=== PATIENT | female | born 1955 | race Two or more races ===

== ENCOUNTER 2017-02-11 17:36 | Emergency (ER) | payer SELFPAY ==
[~2017-02-11] VITALS: Ht 149.9 cm; Wt 68.0 kg
[~2017-02-11 17:36] MED LIST: BACL-63 PO; DOCU-94 PO; GABA300C8 PO; HYOS0.1250 PO; LANS30CA63 PO; ONDA8TAB6 PO; SENN8.6T4 PO; SERT-160 PO; SUC1LQ PO; ZOLP10TA PO
[2017-02-11 17:41] VITALS: BP 123/67
== END 2017-02-11 20:06 | disposition home or self-care (01) ==
LOC: ER 17:36
DX: N39.0 Urinary tract infection, site not specified (principal); I48.91 Unspecified atrial fibrillation; Z87.440 Personal history of urinary (tract) infections; Z90.89 Acquired absence of other organs; Z90.710 Acquired absence of both cervix and uterus

== ENCOUNTER 2017-02-18 03:41 | Emergency (ER) | payer MEDICARE ==
[~2017-02-18] VITALS: Ht 149.9 cm; Wt 68.0 kg
[2017-02-18 04:48] LABS: Basophils # (auto) 0 uL; Basophils % (auto) 0.1 % (0.0-2.0); Eosinophils # (auto) 0.2 uL; Eosinophils % (auto) 1.4 % (0.0-7.0); Hemoglobin 13.2 g/dL (12.2-16.2); Lymphocytes % (auto) 16.5 % (10.0-50.0); Mean Corpuscular Hemoglobin 27.1 pg (28.0-32.0); Mean Corpuscular Volume 82.2 fL (80.0-100.0); Mean Platelet Volume 7.8 fL (7.4-10.4); Monocytes # (auto) 0.8 uL; Neutrophils # (auto) 9.1 uL; Platelet Count (auto) 269 10^3/uL (140-450); Red Cell Distribution Width 14.4 % (11.6-16.0); White Blood Cell 12.1 10^3/uL (4.4-10.8)
[2017-02-18 05:03] LABS: Urine Bilirubin Negative (Negative); Urine Blood Negative /uL (Negative); Urine Color Yellow (Yellow); Urine Glucose Normal (Normal); Urine Ketone Negative (Negative); Urine Nitrite Negative (Negative); Urine RBC <1 /hpf (0 - 4); Urine Squamous Epithelial Cell FEW /hpf (<5); Urine Urobilinogen Normal (Negative); Urine pH 6.5 (5.0-8.0)
[2017-02-18 05:19] LABS: Albumin 3.8 g/dL (3.4-5.0); Anion Gap 8 (5-15); Aspartate Aminotransferase 27 U/L (15-37); BUN/Creatinine Ratio 12.3; Blood Urea Nitrogen 13 mg/dL (7-18); Calcium 9.1 mg/dL (8.5-10.1); Carbon Dioxide 28 mmol/L (21-32); Chloride 102 mmol/L (98-107); GFR African American 68 mL/min; GFR Non-African American 56 mL/min; Glucose 106 mg/dL (74-106); Magnesium 2.3 mg/dL (1.6-2.6); Potassium 3.5 mmol/L (3.5-5.1); Sodium 138 mmol/L (136-145)
[2017-02-18 05:24] LABS: Alkaline Phosphatase 104 U/L (45-117); Bilirubin, Total 0.4 mg/dL (0.2-1.0); Total Protein 7.8 g/dL (6.4-8.2)
[2017-02-18] MEDS ORDERED: SODIUM CHLORIDE 0.9% 1,000 ML IV ONE (06:39)
[2017-02-18] MEDS ORDERED: METOCLOPRAMIDE HCL 5MG/ml INJ 2ml VIAL IV ONE (06:45)
[2017-02-18] MEDS ORDERED: KETOROLAC TROMETH 30 MG/ML 1ML VIAL IV ONE (06:45)
[2017-02-18 07:39] VITALS: BP 121/79
== END 2017-02-18 09:47 | disposition home or self-care (01) ==
LOC: ER 03:41
DX: M54.5 Low back pain (principal); K21.9 Gastro-esophageal reflux disease without esophagitis; Z87.440 Personal history of urinary (tract) infections; Z90.49 Acquired absence of other specified parts of digestive tract; Z90.710 Acquired absence of both cervix and uterus
CPT/HCPCS: 36415; 71020; 80053; 81001; 83735; 84484; 85025; 93005; 96361; 96374; 96375; 99285; J1885; J2765

== ENCOUNTER 2018-03-11 14:58 | Emergency (ER) | payer OTHER ==
[~2018-03-11] VITALS: Ht 149.9 cm; Wt 72.6 kg
[~2018-03-11 14:58] MED LIST changes: +GABA300C10 PO; -GABA300C8 PO; -SUC1LQ PO; +SUCR1SUS10 PO
[2018-03-11 15:35] LABS: Basophils # (auto) 0.1 uL; Basophils % (auto) 0.6 % (0.0-2.0); Eosinophils # (auto) 0.2 uL; Hematocrit 42.1 % (36.0-46.0); Hemoglobin 14.1 g/dL (12.2-16.2); Mean Corpuscular Hemoglobin 27.9 pg (28.0-32.0); Mean Corpuscular Hgb Conc. 33.5 g/dL (32.0-36.0); Mean Corpuscular Volume 83.3 fL (80.0-100.0); Monocytes # (auto) 0.5 uL; Neutrophils # (auto) 5.2 uL; Neutrophils % (auto) 65.4 % (37.0-80.0); Nucleated Red Blood Cells % 0.1 %; Platelet Count (auto) 232 10^3/uL (140-450); Red Blood Cells 5.06 10^6/uL (4.0-5.20); Red Cell Distribution Width 13.5 % (11.8-14.3)
[2018-03-11 15:51] LABS: Albumin 3.8 g/dL (3.4-5.0); BUN/Creatinine Ratio 16.3; Calcium 8.6 mg/dL (8.5-10.1); Potassium 3.8 mmol/L (3.5-5.1)
[2018-03-11 15:54] LABS: Bilirubin, Total 0.3 mg/dL (0.2-1.0)
[2018-03-11 17:23] VITALS: BP 105/70
== END 2018-03-11 17:45 | disposition home or self-care (01) ==
LOC: ER 15:02
DX: N20.0 Calculus of kidney (principal); K21.9 Gastro-esophageal reflux disease without esophagitis; Z87.42 Personal history of other diseases of the female genital tract; Z87.440 Personal history of urinary (tract) infections; Z90.49 Acquired absence of other specified parts of digestive tract; Z79.899 Other long term (current) drug therapy; Z90.710 Acquired absence of both cervix and uterus
CPT/HCPCS: 36415; 74176; 80053; 83690; 85025; 93005

== ENCOUNTER 2018-04-15 16:11 | Emergency (ER) | payer OTHER ==
[~2018-04-15] VITALS: Ht 149.9 cm; Wt 75.7 kg
[2018-04-15 18:26] VITALS: BP 115/69
== END 2018-04-15 18:30 | disposition home or self-care (01) ==
LOC: ER 16:11
DX: R10.9 Unspecified abdominal pain (principal); K21.9 Gastro-esophageal reflux disease without esophagitis; Z90.710 Acquired absence of both cervix and uterus; Z90.89 Acquired absence of other organs